=== PATIENT | male | born 1990 | race African-American/Black ===

== ENCOUNTER 2019-08-10 07:23 | Emergency (ER) | payer OTHER ==
[~2019-08-10] VITALS: Ht 170.2 cm; Wt 67.1 kg
[2019-08-10 07:55] VITALS: BP 117/85
[2019-08-10] MEDS ORDERED: FAMOTIDINE20 MG ORAL (08:11)
[2019-08-10] MEDS ORDERED: LIDODERM700 M1 TOPIC (08:11)
[2019-08-10 08:18] VITALS: BP 117/85
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
== END 2019-08-10 08:19 | disposition home or self-care (01) ==
LOC: EMR 07:55
DX: K29.70 Gastritis, unspecified, without bleeding (principal); M54.6 Pain in thoracic spine
CPT/HCPCS: 99282